=== PATIENT | female | born 1955 | race Caucasian/White ===

== ENCOUNTER → 2022-04-14 | Outpatient (CLI) | payer MEDICARE | END | disposition home or self-care (01) | LOC: RESCLI 14:41 | PROVIDERS: ATTEND Internal Medicine | DX: I10 Essential (primary) hypertension (principal); E11.9 Type 2 diabetes mellitus without complications; E78.5 Hyperlipidemia, unspecified; F43.20 Adjustment disorder, unspecified; E63.9 Nutritional deficiency, unspecified; R25.1 Tremor, unspecified; Z79.899 Other long term (current) drug therapy ==

== ENCOUNTER → 2023-05-10 | Outpatient (CLI) | payer MEDICARE | END | disposition home or self-care (01) | LOC: RESCLI 16:13 | PROVIDERS: ATTEND Internal Medicine | DX: I12.9 Hypertensive chronic kidney disease with stage 1 through stage 4 chronic kidney disease, or unspecified chronic kidney disease (principal); E78.5 Hyperlipidemia, unspecified; R25.1 Tremor, unspecified; E11.22 Type 2 diabetes mellitus with diabetic chronic kidney disease; E63.9 Nutritional deficiency, unspecified; N18.32 Chronic kidney disease, stage 3b; Z82.49 Family history of ischemic heart disease and other diseases of the circulatory system; Z79.899 Other long term (current) drug therapy; Z88.8 Allergy status to other drugs, medicaments and biological substances ==